=== PATIENT | female | born 1960 | race Caucasian/White ===

== ENCOUNTER → 2020-12-21 | Outpatient (CLI) | payer BC ==
--- NOTE | 2020-12-21 17:10 | BD ---
EXAMINATION TYPE: Axial Bone Density DATE OF EXAM: 12/21/2020 COMPARISON: NONE CLINICAL HISTORY: 59 YR OLD FEMALE.....ICD-10 CODE: M81.0 OSTEOPOROSIS Height: 59 Weight: 139 FRAX RISK QUESTIONS: Alcohol (3 or more units per day): YES RISK FACTORS HISTORY OF: Postmenopausal woman: YES, AT AGE 53 YRS OLD Lost more than 2 inches in height since high school: YES Hyperparathyroidism: NO Adrenal Insufficiency: NO MEDICATIONS: Additional Medications: STATIN FOR CHOLESTEROL, VIT D3, Additional History: CHOLESTEROL, LOW VIT D EXAM MEASUREMENTS: Bone mineral densitometry was performed using the [employer] [facility]. Bone mineral density as measured about the Lumbar spine is: ----- L1-L4(G/cm2): 1.167 T Score Values are as follows: ----- L1: -0.3 ----- L2: -0.1 ----- L3: 0.1 ----- L4: -1.3 ----- L1-L4: -0.1 Bone mineral density FIRST BONE DENSITY SCAN.......BASELINE STUDY Bone mineral density about the R hip (g/cm2): 0.896 Bone mineral density about the L hip (g/cm2): 0.916 T Score values are as follows: -----R Neck: -1.5 -----L Neck: -1.1 -----R Total: -0.9 -----L Total: -0.7 Bone mineral density BASELINE STUDY FRAX%s: THERE IS A 9.5% CHANCE FOR A MAJOR OSTEOPOROTIC FX AND A 1.0% FOR HIP......PROBABILITY FOR FX IN 10 YRS TIME IMPRESSION: Osteopenia (T Score between -2.5 and -1). There is slightly increased risk of fracture and the patient may be considered for treatment. Re-Screen 2-5 years. NOTE: T-SCORE=SD OF THE YOUNG ADULT MEAN.
--- NOTE | 2020-12-24 11:38 | MM ---
Reason for exam: screening (asymptomatic). History: Patient is postmenopausal. Physical Findings: A clinical breast exam by your physician is recommended on an annual basis and results should be correlated with mammographic findings. MG Screening Mammo w CAD Bilateral CC and MLO view(s) were taken. No prior studies available for comparison. The breast tissue is heterogeneously dense. This may lower the sensitivity of mammography. There are benign appearing round calcifications bilaterally. There is no discrete abnormality. ASSESSMENT: Benign, BI-RAD 2 RECOMMENDATION: Routine screening mammogram of both breasts in 1 year.
== END | disposition home or self-care (01) ==
LOC: RADMAMWWP 10:10
PROVIDERS: ATTEND Nurse Practitioner Family
DX: Z12.31 Encounter for screening mammogram for malignant neoplasm of breast (principal); M85.80 Other specified disorders of bone density and structure, unspecified site
CPT/HCPCS: 77067; 77080

== ENCOUNTER → 2021-12-27 | Outpatient (CLI) | payer BC | END | disposition home or self-care (01) | LOC: RADUSWWP 11:55 | PROVIDERS: ATTEND Internal Medicine Geriatric Medicine | DX: R09.89 Other specified symptoms and signs involving the circulatory and respiratory systems (principal); R20.0 Anesthesia of skin; M79.672 Pain in left foot; M79.671 Pain in right foot | CPT/HCPCS: 93922 ==

== ENCOUNTER → 2022-01-09 | Outpatient (CLI) | payer BC ==
--- NOTE | 2022-01-14 12:22 | MM ---
Reason for exam: screening (asymptomatic). Last mammogram was performed 1 year and 1 month ago. History: Patient is postmenopausal. Physical Findings: A clinical breast exam by your physician is recommended on an annual basis and results should be correlated with mammographic findings. MG 3D Screening Mammo W/Cad Bilateral CC and MLO view(s) were taken. Prior study comparison: December 21, 2020, bilateral MG screening mammo w CAD. No significant changes when compared with prior studies. ASSESSMENT: Benign, BI-RAD 2 RECOMMENDATION: Routine screening mammogram of both breasts in 1 year.
== END | disposition home or self-care (01) ==
LOC: RADMAMWWP 15:19
PROVIDERS: ATTEND Family Medicine
DX: Z12.31 Encounter for screening mammogram for malignant neoplasm of breast (principal); Z78.0 Asymptomatic menopausal state
CPT/HCPCS: 77063; 77067

== ENCOUNTER → 2023-01-27 | Outpatient (CLI) | payer BC ==
--- NOTE | 2023-01-27 13:35 | BD ---
EXAMINATION TYPE: Axial Bone Density DATE OF EXAM: 01/27/2023 CLINICAL HISTORY: 62 years old Female. ICD-10 CODE: N95.1 POST MENOPAUSAL SYMPTOMS Height: 153lb Weight: 59in FRAX RISK QUESTIONS: Alcohol (3 or more units per day): yes Secondary Osteoporosis: RISK FACTORS HISTORY OF: Active: yes Postmenopausal woman: yes Lost more than 2 inches in height since high school: yes MEDICATIONS: Additional Medications: cholesterol med,vitamin d Additional History: EXAM MEASUREMENTS: Bone mineral densitometry was performed using the [employer]. Bone mineral density as measured about the Lumbar spine is: ----- L1-L4(G/cm2): 1.101 T Score Values are as follows: ----- L1: -0.8 ----- L2: -0.5 ----- L3: -0.7 ----- L4: -0.8 ----- L1-L4: -0.7 Z Score Values are as follows: ----- L1: 0.4 ----- L2: 0.7 ----- L3: 0.5 ----- L4: 0.4 ----- L1-L4: 0.6 Bone mineral density has: Decreased -5.7% since study of: 12-21-2020 Bone mineral density about the R hip (g/cm2): 0.877 Bone mineral density about the L hip (g/cm2): 0.935 T Score values are as follows: -----R Neck: -1.9 -----L Neck: -1.0 -----R Total: -1.0 -----L Total: -0.6 Z Score values are as follows: -----R Neck: -0.7 -----L Neck: 0.3 -----R Total: -0.1 -----L Total: 0.3 Bone mineral density has: unchanged 0% since study of: 12-21-20 FRAX%s: The graph provided illustrates a 11.4% chance for a major osteoporotic fx and a 1.8% chance f or the hips probability for fx in 10 years time. IMPRESSION: Osteopenia (T Score between -2.5 and -1). There is slightly increased risk of fracture and the patient may be considered for treatment. Re-Screen 2-5 years. NOTE: T-SCORE=SD OF THE YOUNG ADULT MEAN.
--- NOTE | 2023-01-28 08:52 | MM ---
Reason for Exam: Screening (asymptomatic). Last mammogram was performed 1 year(s) and 1 month(s) ago. Patient History: Menarche at age 14. First Full-Term at age 23. Hysterectomy at age 29. Postmenopausal. Risk Values: Camila 5 year model risk: 1.2%. NCI Lifetime model risk: 5.7%. Prior Study Comparison: 12/21/2020 Bilateral Screening Mammogram, [facility]. 01/09/2022 Bilateral Screening Mammogram, [facility]. Tissue Density: The breast tissue is heterogeneously dense. This may lower the sensitivity of mammography. Findings: Analyzed By CAD. Pattern appears symmetrical and stable. Benign calcifications within the bilateral breasts. Chronic nodularity is present. No suspicious groups of microcalcifications, spiculated or lobular masses, architectural distortion or other secondary signs of malignancy are mammographically apparent. Overall Assessment: Benign, BI-RAD 2 Management: Screening Mammogram of both breasts in 1 year. A negative mammogram report should not preclude additional follow up of suspicious palpable abnormalities. Patient should continue monthly self breast exam. A clinical breast exam by your physician is recommended on an annual basis and results should be correlated with mammographic findings. Electronically signed and approved by: Milton Black D.O. Radiologis
== END | disposition home or self-care (01) ==
LOC: RADMAMWWP 11:52
PROVIDERS: ATTEND Family Medicine
DX: Z12.31 Encounter for screening mammogram for malignant neoplasm of breast (principal); M85.89 Other specified disorders of bone density and structure, multiple sites; N95.1 Menopausal and female climacteric states
CPT/HCPCS: 77067; 77080

== ENCOUNTER → 2024-08-05 | Outpatient (CLI) | payer BC ==
--- NOTE | 2024-08-08 09:04 | MM ---
Reason for Exam: Screening (asymptomatic). Last mammogram was performed 1 year(s) and 6 month(s) ago. Patient History: Menarche at age 14. First Full-Term at age 23. Hysterectomy at age 29. Postmenopausal. Risk Values: Camila 5 year model risk: 1.3%. NCI Lifetime model risk: 5.5%. Prior Study Comparison: 12/21/2020 Bilateral Screening Mammogram, [facility]. 01/09/2022 Bilateral Screening Mammogram, [facility]. 01/27/2023 Bilateral MG screening mammo w CAD, [facility]. Tissue Density: There are scattered areas of fibroglandular density. Findings: Analyzed By CAD. Right breast: There is no suspicious group of microcalcifications or new suspicious mass. Left breast: There is no suspicious group of microcalcifications or new suspicious mass. Overall Assessment: Negative, BI-RAD 1 Management: Screening Mammogram of both breasts in [address] [facility] will attempt to contact patient to return for supplemental views and ultrasound if indicated. Patient should continue monthly self-breast exams. A clinical breast exam by your physician is recommended on an annual basis. This exam should not preclude additional follow-up of suspicious palpable abnormalities. Note on Camila scores and lifetime risk: 1. A Camila score greater than 3% is considered moderate risk. If this is the case, consider specialist referral to assess eligibility for a risk reducing agent. 2. If overall lifetime risk for the development of breast cancer is 20% or higher, the patient may qualify for future screening with alternating mammogram and breast MRI. [facility], , 08/08/2024 9:01 AM. Electronically signed and approved by: Wilfredo Nunez DO
== END | disposition home or self-care (01) ==
LOC: RADMAMWWP 08:50
PROVIDERS: ATTEND Family Medicine
CPT/HCPCS: 77067